=== PATIENT | female | born 1955 | race African-American/Black ===

== ENCOUNTER 2017-11-20 06:51 | Emergency (ER) | payer OTHER ==
[~2017-11-20 06:51] MED LIST: ALBU8.5H8 PO; DIPH25 PO; FURO20 PO; HYDR-309 PO; HYDR-3971 PO; KDUR20 PO; MOME13HF PO
== END 2017-11-20 07:51 | disposition left against medical advice (07) ==
LOC: EMS 06:51
DX: R06.02 Shortness of breath (principal); Z53.21 Procedure and treatment not carried out due to patient leaving prior to being seen by health care provider

== ENCOUNTER 2017-11-24 14:27 | Emergency (ER) | payer OTHER ==
[~2017-11-24] VITALS: Ht 165.1 cm; Wt 101.0 kg
[~2017-11-24 14:27] MED LIST changes: +MOME13HF IH; -MOME13HF PO
[2017-11-24] MEDS ORDERED: ALBUTEROL SULFATE 5 MG/ML 20 ML NEB SOLN [BULK] NEB ONE (15:00)
[2017-11-24] MEDS ORDERED: IPRATROPIUM BROMIDE 0.5 MG/2.5 ML NEB SOLUTION NEB ONE (15:00)
[2017-11-24] MEDS ORDERED: 0.9% SODIUM CHLORIDE 15 ML NEB SOLUTION NEB ONE (15:54)
[2017-11-24 17:13] VITALS: BP 187/85
[2017-11-28] MEDS ORDERED: NITR.4 SL (13:48)
[2017-11-28] MEDS ORDERED: CLON2 PO (13:48)
[2017-11-28] MEDS ORDERED: FURO20 PO (13:48)
[2017-11-28] MEDS ORDERED: VITAD50000 PO (13:48)
[2017-11-28] MEDS ORDERED: OMEP20 PO (13:48)
[2017-11-28] MEDS ORDERED: FAMO20 PO (13:48)
[2017-11-28] MEDS ORDERED: HYDR-305 PO (13:48)
[2017-11-28] MEDS ORDERED: RANI150T7 PO (13:48)
[2017-11-28] MEDS ORDERED: LOSA50TA37 PO (13:48)
[2017-11-28] MEDS ORDERED: ASPI81 PO (13:48)
[2017-11-28] MEDS ORDERED: METO25XL PO (13:48)
[2017-11-28] MEDS ORDERED: ROSU10 PO (13:48)
== END 2017-11-24 17:42 | disposition home or self-care (01) ==
LOC: EMS 14:27
DX: J44.9 Chronic obstructive pulmonary disease, unspecified (principal); E05.90 Thyrotoxicosis, unspecified without thyrotoxic crisis or storm; G89.29 Other chronic pain; F17.210 Nicotine dependence, cigarettes, uncomplicated
CPT/HCPCS: 94644; 99285; 99406

== ENCOUNTER 2017-11-25 11:14 | Emergency (ER) | payer OTHER ==
[~2017-11-25] VITALS: Ht 167.6 cm; Wt 100.0 kg
[~2017-11-25 11:14] MED LIST changes: -HYDR-3971 PO; -KDUR20 PO
[2017-11-25 11:46] VITALS: BP 142/84
[2017-11-25] MEDS ORDERED: 0.9% SODIUM CHLORIDE 5 ML NEB SOLUTION NEB ONE (11:53)
[2017-11-25] MEDS ORDERED: PredniSONE 20 MG TABLET PO ONE (12:00)
[2017-11-25] MEDS ORDERED: IPRATROPIUM BROMIDE 0.5 MG/2.5 ML NEB SOLUTION NEB ONE (12:00)
[2017-11-25] MEDS ORDERED: ALBUTEROL SULFATE 2.5 MG/0.5 ML NEB SOLUTION NEB ONE (12:00)
[2017-11-25 12:05] LABS: BASOPHILS % (AUTO) 0.9 % (0.0-2.0); EOSINOPHILS % (AUTO) 4.6 % (1.0-6.0); HEMATOCRIT 43.5 % (36-46); HEMOGLOBIN 14.8 g/dL (12.0-16.0); LYMPHOCYTES # (AUTO) 3.2 K/uL (1.0-4.8); LYMPHOCYTES % (AUTO) 31.5 % (22.0-44.0); MEAN CORPUSCULAR HEMOGLOBIN 29.3 pg (26.0-34.0); MEAN CORPUSCULAR VOLUME 86 fL (80-100); MONOCYTES # (AUTO) 0.3 K/uL (0.1-1.0); MONOCYTES % (AUTO) 3.4 % (2.0-9.0); NEUTROPHILS # (AUTO) 6.1 K/uL (1.8-7.7); NEUTROPHILS % (AUTO) 59.6 % (40.0-70.0); PLATELET COUNT (AUTO) 273 K/uL (150-450); RED BLOOD CELL COUNT(AUTO) 5.06 MIL/uL (4.00-5.20); RED CELL DISTRIBUTION WIDTH 13.6 % (11.5-14.5)
[2017-11-28] MEDS ORDERED: ROSU10 PO (13:48)
[2017-11-28] MEDS ORDERED: FAMO20 PO (13:48)
[2017-11-28] MEDS ORDERED: OMEP20 PO (13:48)
[2017-11-28] MEDS ORDERED: METO25XL PO (13:48)
[2017-11-28] MEDS ORDERED: FURO20 PO (13:48)
[2017-11-28] MEDS ORDERED: RANI150T7 PO (13:48)
[2017-11-28] MEDS ORDERED: CLON2 PO (13:48)
[2017-11-28] MEDS ORDERED: VITAD50000 PO (13:48)
[2017-11-28] MEDS ORDERED: ASPI81 PO (13:48)
[2017-11-28] MEDS ORDERED: LOSA50TA37 PO (13:48)
[2017-11-28] MEDS ORDERED: NITR.4 SL (13:48)
[2017-11-28] MEDS ORDERED: HYDR-305 PO (13:48)
== END 2017-11-25 13:35 | disposition home or self-care (01) ==
LOC: EMS 11:15
DX: J44.9 Chronic obstructive pulmonary disease, unspecified (principal); R11.2 Nausea with vomiting, unspecified; R19.7 Diarrhea, unspecified; I50.9 Heart failure, unspecified; E05.90 Thyrotoxicosis, unspecified without thyrotoxic crisis or storm; F32.9 Major depressive disorder, single episode, unspecified; G89.29 Other chronic pain; F17.210 Nicotine dependence, cigarettes, uncomplicated; Z79.899 Other long term (current) drug therapy; Z87.891 Personal history of nicotine dependence
CPT/HCPCS: 36415; 71045; 83880; 85025; 94640; 99285; J7512

== ENCOUNTER 2017-11-29 08:13 | Day surgery (SDC) | payer OTHER ==
[~2017-11-29] VITALS: Ht 165.1 cm; Wt 111.0 kg
[~2017-11-29 08:13] MED LIST changes: +0.9% SODIUM CHLORIDE 10 ML SYRINGE IVP PRN; +ASPI81 PO; +CLON2 PO; -DIPH25 PO; +FAMO20 PO; +HYDR-305 PO; -HYDR-309 PO; +LOSA50TA37 PO; +METO25XL PO; +METOPROLOL TARTRATE 50 MG TABLET PO PRN; +NITR.4 SL; +OMEP20 PO; +RANI150T7 PO; +ROSU10 PO; +VITAD50000 PO
[2017-11-29] MEDS ORDERED: EVOL140P IM (08:41)
[2017-11-29] MEDS ORDERED: PRED20 PO (08:41)
[2017-11-29 09:20] LABS: ANION GAP 6 mmol/L (8-16); CALCIUM, TOTAL 8.6 mg/dL (8.8-10.5); CARBON DIOXIDE 29 mmol/L (22-29); CHLORIDE 105 mmol/L (98-107); CREATININE 0.74 mg/dL (0.60-1.30); GLOMERULAR FILTR. RATE CALC > 60 mL/min (>60); GLUCOSE,RANDOM 87 mg/dL (70-110); POTASSIUM 3.3 mmol/L (3.5-5.1); SODIUM SERUM 140 mmol/L (136-145); UREA NITROGEN, BLOOD 17 mg/dL (7-18)
[2017-11-29] MEDS ORDERED: NITROGLYCERIN 400 MCG/SUBLINGUAL SPRAY 4.9 GM BOTTLE SL ONE ×2 (10:06→10:36)
[2017-11-29] MEDS ORDERED: METOPROLOL TARTRATE 5 MG/5 ML VIAL ONE (10:06)
[2017-11-29] MEDS ORDERED: IOVERSOL 350 MG/ML 150 ML VIAL ONE (10:26)
[2017-11-29] MEDS ORDERED: SODIUM CHLORIDE 0.9% 100 ML ONE (10:26)
== END 2017-11-29 11:40 | disposition home or self-care (01) ==
LOC: SURGERY 08:13 → EDSTATUS 10:00 → SURGERY 11:40
PROVIDERS: ATTEND Internal Medicine Cardiovascular Disease
DX: I25.118 Atherosclerotic heart disease of native coronary artery with other forms of angina pectoris (principal); I34.0 Nonrheumatic mitral (valve) insufficiency; J44.9 Chronic obstructive pulmonary disease, unspecified; E78.00 Pure hypercholesterolemia, unspecified; F32.9 Major depressive disorder, single episode, unspecified; G89.29 Other chronic pain; K21.9 Gastro-esophageal reflux disease without esophagitis; I11.9 Hypertensive heart disease without heart failure; Z79.52 Long term (current) use of systemic steroids; Z79.82 Long term (current) use of aspirin; Z79.891 Long term (current) use of opiate analgesic; Z87.891 Personal history of nicotine dependence; Z90.710 Acquired absence of both cervix and uterus; Z79.899 Other long term (current) drug therapy
CPT/HCPCS: 36415; 75574; 80048; 93005; J7050; Q9967; J3490

== ENCOUNTER 2018-02-04 11:11 | Emergency (ER) | payer OTHER ==
[~2018-02-04] VITALS: Ht 165.1 cm; Wt 104.5 kg
[~2018-02-04 11:11] MED LIST changes: -0.9% SODIUM CHLORIDE 10 ML SYRINGE IVP PRN; -CLON2 PO; +EVOL140P IM; -HYDR-305 PO; -LOSA50TA37 PO; -METOPROLOL TARTRATE 50 MG TABLET PO PRN; -NITR.4 SL; -OMEP20 PO; +PRED20 PO; -ROSU10 PO
[2018-02-04] MEDS ORDERED: ALBUTEROL SULFATE 2.5 MG/0.5 ML NEB SOLUTION NEB ONE (12:30)
[2018-02-04] MEDS ORDERED: IPRATROPIUM BROMIDE 0.5 MG/2.5 ML NEB SOLUTION NEB ONE (12:30)
[2018-02-04] MEDS ORDERED: 0.9% SODIUM CHLORIDE 5 ML NEB SOLUTION NEB ONE (12:34)
[2018-02-04 13:07] LABS: BASOPHILS % (AUTO) 0.8 % (0.0-2.0); EOSINOPHILS % (AUTO) 5.1 % (1.0-6.0); HEMATOCRIT 44.1 % (36-46); HEMOGLOBIN 14.7 g/dL (12.0-16.0); LYMPHOCYTES # (AUTO) 2.3 K/uL (1.0-4.8); LYMPHOCYTES % (AUTO) 20.9 % (22.0-44.0); MEAN CORPUSCULAR HEMOGLOBIN 28.9 pg (26.0-34.0); MEAN CORPUSCULAR HGB CONC 33.3 G/dL (31.0-37.0); MEAN CORPUSCULAR VOLUME 87 fL (80-100); MONOCYTES # (AUTO) 0.6 K/uL (0.1-1.0); NEUTROPHILS # (AUTO) 7.5 K/uL (1.8-7.7); NEUTROPHILS % (AUTO) 68.2 % (40.0-70.0); PLATELET COUNT (AUTO) 272 K/uL (150-450); RED BLOOD CELL COUNT(AUTO) 5.08 MIL/uL (4.00-5.20); RED CELL DISTRIBUTION WIDTH 13.6 % (11.5-14.5)
[2018-02-04 13:14] LABS: ANION GAP 7 mmol/L (8-16); CALCIUM, TOTAL 9.2 mg/dL (8.8-10.5); CARBON DIOXIDE 29 mmol/L (22-29); CHLORIDE 107 mmol/L (98-107); CREATININE 0.75 mg/dL (0.60-1.30); GLOMERULAR FILTR. RATE CALC > 60 mL/min (>60); GLUCOSE,RANDOM 99 mg/dL (70-110); POTASSIUM 3.9 mmol/L (3.5-5.1); SODIUM SERUM 143 mmol/L (136-145); UREA NITROGEN, BLOOD 7 mg/dL (7-18)
[2018-02-04 13:18] LABS: PROTHROMBIN TIME 10.2 SEC (9.4-11.6)
[2018-02-04 13:29] LABS: B-TYPE NATRIURETIC PEPTIDE 10 pg/mL (0-100)
[2018-02-04 13:38] LABS: ALANINE AMINOTRANSFERASE 22 U/L (12-78); ALBUMIN 3.6 g/dL (3.4-5.0); ALKALINE PHOSPHATASE 117 U/L (46-116); ASPARTATE AMINOTRANSFERASE 11 U/L (15-37); BILIRUBIN,TOTAL 0.3 mg/dL (0.1-1.0); CREATINE KINASE, TOTAL ONLY 83 U/L (26-192); TOTAL PROTEIN, SERUM 7.8 g/dL (6.4-8.2)
[2018-02-04] MEDS ORDERED: MethylPREDNISolone SOD SUCC 125 MG/2 ML VIAL IVP ONE (14:30)
[2018-02-04 14:44] VITALS: BP 119/63
== END 2018-02-04 15:31 | disposition home or self-care (01) ==
LOC: EMS 11:12
DX: J44.9 Chronic obstructive pulmonary disease, unspecified (principal); I50.9 Heart failure, unspecified; F32.9 Major depressive disorder, single episode, unspecified; E05.90 Thyrotoxicosis, unspecified without thyrotoxic crisis or storm; F17.210 Nicotine dependence, cigarettes, uncomplicated; Z90.710 Acquired absence of both cervix and uterus; Z79.82 Long term (current) use of aspirin; Z79.899 Other long term (current) drug therapy
CPT/HCPCS: 36415; 71045; 80053; 82550; 83880; 84484; 85025; 85610; 85730; 93005; 94640; 96374; 99285; J2930

== ENCOUNTER 2019-06-24 02:05 | Inpatient (IN) | payer OTHER ==
[~2019-06-24] VITALS: Ht 165.1 cm; Wt 151.3 kg
[~2019-06-24 02:05] MED LIST changes: +ASPI-728 PO; -ASPI81 PO; +CHOL500043 PO; -EVOL140P IM; +EVOL140P3 IM; -VITAD50000 PO
[2019-06-24] MEDS ORDERED: LORazepam 2 MG/ML VIAL ONE (02:09)
[2019-06-24] MEDS ORDERED: IPRATROPIUM BROMIDE 0.5 MG/2.5 ML NEB SOLUTION NEB ONE ×2 (02:14→02:15)
[2019-06-24] MEDS ORDERED: ALBUTEROL SULFATE 5 MG/ML 20 ML NEB SOLN [BULK] NEB ONE ×2 (02:14→02:15)
[2019-06-24] MEDS ORDERED: LORazepam 2 MG/ML VIAL IVP ONE (02:15)
[2019-06-24] MEDS ORDERED: ASPIRIN 325 MG TABLET PO ONE (02:15)
[2019-06-24] MEDS ORDERED: LABETALOL HCL 5 MG/ML 20 ML VIAL IVP ONE (02:15)
[2019-06-24] MEDS ORDERED: NITROGLYCERIN 0.4 MG SUBLINGUAL TABLET #25 SL ONE ×2 (02:30→02:45)
[2019-06-24] MEDS ORDERED: MethylPREDNISolone SOD SUCC 125 MG/2 ML VIAL IVP ONE (02:30)
[2019-06-24 02:31] LABS: BASOPHILS % (AUTO) 0.3 % (0.0-2.0); EOSINOPHILS % (AUTO) 0.4 % (1.0-6.0); HEMATOCRIT 47.5 % (36-46); HEMOGLOBIN 14.9 g/dL (12.0-16.0); LYMPHOCYTES # (AUTO) 6.7 K/uL (1.0-4.8); LYMPHOCYTES % (AUTO) 35.4 % (22.0-44.0); MEAN CORPUSCULAR HEMOGLOBIN 28.2 pg (26.0-34.0); MEAN CORPUSCULAR HGB CONC 31.4 G/dL (31.0-37.0); MEAN CORPUSCULAR VOLUME 90 fL (80-100); MONOCYTES % (AUTO) 5.2 % (2.0-9.0); NEUTROPHILS # (AUTO) 11.1 K/uL (1.8-7.7); NEUTROPHILS % (AUTO) 58.7 % (40.0-70.0); PLATELET COUNT (AUTO) 332 K/uL (150-450); RED BLOOD CELL COUNT(AUTO) 5.29 MIL/uL (4.00-5.20); RED CELL DISTRIBUTION WIDTH 14.6 % (11.5-14.5)
[2019-06-24 02:41] LABS: ANION GAP 12 mmol/L (8-16); CALCIUM, TOTAL 9.8 mg/dL (8.8-10.5); CARBON DIOXIDE 29 mmol/L (22-29); CHLORIDE 106 mmol/L (98-107); CREATININE 0.96 mg/dL (0.60-1.30); GLOMERULAR FILTR. RATE CALC > 60 mL/min (>60); GLUCOSE,RANDOM 176 mg/dL (70-110); POTASSIUM 3.4 mmol/L (3.5-5.1); SODIUM SERUM 147 mmol/L (136-145); UREA NITROGEN, BLOOD 18 mg/dL (7-18)
[2019-06-24 02:45] LABS: D-DIMER 0.28 mg/L FEU (0.00-0.50); INR 0.9 (0.9-1.1); PROTHROMBIN TIME 9.5 SEC (9.4-11.6)
[2019-06-24 02:47] LABS: ALANINE AMINOTRANSFERASE 33 U/L (12-78); ALBUMIN 3.6 g/dL (3.4-5.0); ALKALINE PHOSPHATASE 116 U/L (46-116); ASPARTATE AMINOTRANSFERASE 13 U/L (15-37); BILIRUBIN,TOTAL 0.2 mg/dL (0.1-1.0); TOTAL PROTEIN, SERUM 7.8 g/dL (6.4-8.2)
[2019-06-24 02:52] LABS: B-TYPE NATRIURETIC PEPTIDE 37 pg/mL (0-100)
[2019-06-24] MEDS ORDERED: MAGNESIUM SULFATE 2 GM/WATER 50 ML IV ONE (03:00)
[2019-06-24] MEDS ORDERED: CefTRIAXone 1 GM/DEXTROSE 50 ML IV ONE (03:30)
[2019-06-24 03:47] LABS: LACTIC ACID 2.4 mmol/L (0.4-2.0)
[2019-06-24] MEDS ORDERED: SODIUM CHLORIDE 0.9% 1,000 ML IV ONE (04:00)
[2019-06-24] MEDS ORDERED: AZITHROMYCIN 250 MG TABLET PO ONE (04:15)
[2019-06-24] MEDS ORDERED: ALBUTEROL SULFATE 2.5 MG/0.5 ML NEB SOLUTION NEB PRN ×3 (05:30→15:15)
[2019-06-24] MEDS ORDERED: IPRATROPIUM BROMIDE 0.5 MG/2.5 ML NEB SOLUTION NEB PRN (05:30)
[2019-06-24] MEDS ORDERED: ACETAMINOPHEN 325 MG TABLET PO PRN (05:30)
[2019-06-24 05:51] VITALS: BP 107/81
[2019-06-24] MEDS ORDERED: OxyCODONE HCL/ACETAMINOPHEN 5-325 MG TABLET PO PRN ×3 (06:30→15:00)
[2019-06-24] MEDS: ALBUTEROL SULFATE 2.5 MG/0.5 ML NEB SOLUTION NEB SCH ×3 (07:04→19:06)
[2019-06-24] MEDS: IPRATROPIUM BROMIDE 0.5 MG/2.5 ML NEB SOLUTION NEB SCH ×3 (07:04→19:06)
[2019-06-24] MEDS ORDERED: INFLUENZA VIRUS VACCINE QVS 2019-20 (3YR+)/PF 60 MCG/0.5 ML SYRINGE IM ONE (07:15)
[2019-06-24] MEDS ORDERED: PNEUMOCOCCAL VACCINE POLYVALENT 0.5 ML VIAL [PPSV23] IM ONE (07:15)
[2019-06-24 07:41] VITALS: BP 124/90
[2019-06-24] MEDS ORDERED: MethylPREDNISolone SOD SUCC 125 MG/2 ML VIAL IVP SCH (08:00)
[2019-06-24] MEDS ORDERED: 0.9% SODIUM CHLORIDE 5 ML NEB SOLUTION NEB ONE (11:00)
[2019-06-24 12:08] VITALS: BP 105/75
[2019-06-24] MEDS ORDERED: ONDANSETRON HCL 4 MG/2 ML VIAL IVP PRN (15:00)
[2019-06-24] MEDS ORDERED: 0.9% SODIUM CHLORIDE 10 ML SYRINGE IVP PRN (15:00)
[2019-06-24] MEDS ORDERED: POTASSIUM CHLORIDE 20 MEQ ER TABLET PO PRN ×2 (15:15)
[2019-06-24] MEDS ORDERED: POTASSIUM CHL 10 MEQ/WATER 50 ML IV PRN ×2 (15:15)
[2019-06-24 16:09] VITALS: BP 127/71
[2019-06-24] MEDS ORDERED: ZOLPIDEM TARTRATE 10 MG TABLET PO PRN (16:15)
[2019-06-24] MEDS ORDERED: SODIUM CHLORIDE 0.9% 250 ML IV ONE (16:19)
[2019-06-24] MEDS: MethylPREDNISolone SOD SUCC 125 MG/2 ML VIAL IVP SCH (16:28)
[2019-06-24] MEDS: FUROSEMIDE 20 MG TABLET PO SCH (16:29)
[2019-06-24] MEDS: AZITHROMYCIN 500 MG/NS 250 ML IV SCH (16:29)
[2019-06-24] MEDS: ASPIRIN 81 MG CHEWABLE TABLET PO SCH (16:29)
[2019-06-24] MEDS: METOPROLOL SUCCINATE 25 MG ER TABLET PO SCH (16:29)
[2019-06-24] MEDS: LORazepam 1 MG TABLET PO PRN (18:24)
[2019-06-24] MEDS: FAMOTIDINE 20 MG TABLET PO SCH (21:10)
[2019-06-24] MEDS: DOCUSATE SODIUM 100 MG CAPSULE PO SCH (21:17)
[2019-06-24 21:47] VITALS: BP 130/73
[2019-06-24] MEDS: CefTRIAXone 1 GM/DEXTROSE 50 ML IV SCH (22:56)
[2019-06-25] MEDS: MethylPREDNISolone SOD SUCC 125 MG/2 ML VIAL IVP SCH ×4 (00:13→23:52)
[2019-06-25 01:21] VITALS: BP 128/82
[2019-06-25] MEDS: IPRATROPIUM BROMIDE 0.5 MG/2.5 ML NEB SOLUTION NEB SCH ×4 (01:51→20:13)
[2019-06-25] MEDS: ALBUTEROL SULFATE 2.5 MG/0.5 ML NEB SOLUTION NEB SCH ×4 (01:51→20:13)
[2019-06-25 05:37] VITALS: BP 108/70
[2019-06-25 06:39] LABS: BASOPHILS % (AUTO) 0.5 % (0.0-2.0); EOSINOPHILS % (AUTO) 0 % (1.0-6.0); HEMATOCRIT 42.2 % (36-46); HEMOGLOBIN 13.4 g/dL (12.0-16.0); LYMPHOCYTES # (AUTO) 1.6 K/uL (1.0-4.8); LYMPHOCYTES % (AUTO) 11.3 % (22.0-44.0); MEAN CORPUSCULAR HEMOGLOBIN 28.1 pg (26.0-34.0); MEAN CORPUSCULAR HGB CONC 31.8 G/dL (31.0-37.0); MEAN CORPUSCULAR VOLUME 88 fL (80-100); MONOCYTES # (AUTO) 0.5 K/uL (0.1-1.0); MONOCYTES % (AUTO) 3.4 % (2.0-9.0); NEUTROPHILS # (AUTO) 11.9 K/uL (1.8-7.7); NEUTROPHILS % (AUTO) 84.8 % (40.0-70.0); PLATELET COUNT (AUTO) 268 K/uL (150-450); RED BLOOD CELL COUNT(AUTO) 4.77 MIL/uL (4.00-5.20); RED CELL DISTRIBUTION WIDTH 14.4 % (11.5-14.5)
[2019-06-25 06:58] LABS: ANION GAP 6 mmol/L (8-16); CARBON DIOXIDE 29 mmol/L (22-29); CHLORIDE 107 mmol/L (98-107); GLOMERULAR FILTR. RATE CALC > 60 mL/min (>60); GLUCOSE,RANDOM 102 mg/dL (70-110); POTASSIUM 4.6 mmol/L (3.5-5.1); SODIUM SERUM 142 mmol/L (136-145); UREA NITROGEN, BLOOD 22 mg/dL (7-18)
[2019-06-25 07:33] VITALS: BP 131/77
[2019-06-25 07:55] LABS: APPEARANCE,URINE HAZY (CLEAR); BILIRUBIN,URINE NEGATIVE (NEGATIVE); GLUCOSE, URINE (UA) NEGATIVE (NEGATIVE); KETONES,URINE NEGATIVE (NEGATIVE); LEUKOCYTE ESTERASE ,URINE NEGATIVE (NEGATIVE); NITRATE,URINE NEGATIVE (NEGATIVE); OCCULT BLOOD,URINE NEGATIVE (NEGATIVE); PH,URINE 5.5 (5.0-8.0); PROTEIN,URINE NEGATIVE (NEGATIVE); UROBILINOGEN,URINE 0.2 mg/dL (<=1.0)
[2019-06-25] MEDS: ASPIRIN 81 MG CHEWABLE TABLET PO SCH (09:12)
[2019-06-25] MEDS: DOCUSATE SODIUM 100 MG CAPSULE PO SCH ×2 (09:12→21:22)
[2019-06-25] MEDS: METOPROLOL SUCCINATE 25 MG ER TABLET PO SCH (09:12)
[2019-06-25] MEDS: FUROSEMIDE 20 MG TABLET PO SCH (09:12)
[2019-06-25] MEDS: NICOTINE 21 MG/24 HOUR PATCH TD SCH (09:13)
[2019-06-25] MEDS: LORazepam 1 MG TABLET PO PRN ×2 (11:43→21:27)
[2019-06-25 11:49] VITALS: BP 133/88
[2019-06-25 15:37] VITALS: BP 127/76
[2019-06-25] MEDS: AZITHROMYCIN 500 MG/NS 250 ML IV SCH (15:40)
[2019-06-25 20:44] VITALS: BP 147/80
[2019-06-25] MEDS: FAMOTIDINE 20 MG TABLET PO SCH (21:22)
[2019-06-25] MEDS: CefTRIAXone 1 GM/DEXTROSE 50 ML IV SCH (21:22)
[2019-06-26] MEDS: IPRATROPIUM BROMIDE 0.5 MG/2.5 ML NEB SOLUTION NEB SCH ×4 (02:00→19:56)
[2019-06-26] MEDS: ALBUTEROL SULFATE 2.5 MG/0.5 ML NEB SOLUTION NEB SCH ×4 (02:00→19:56)
[2019-06-26 04:54] VITALS: BP 167/97
[2019-06-26 06:53] LABS: BASOPHILS % (AUTO) 0.4 % (0.0-2.0); EOSINOPHILS % (AUTO) 0 % (1.0-6.0); HEMOGLOBIN 14.2 g/dL (12.0-16.0); LYMPHOCYTES # (AUTO) 1.5 K/uL (1.0-4.8); LYMPHOCYTES % (AUTO) 13.1 % (22.0-44.0); MEAN CORPUSCULAR HEMOGLOBIN 28.5 pg (26.0-34.0); MEAN CORPUSCULAR HGB CONC 32.4 G/dL (31.0-37.0); MEAN CORPUSCULAR VOLUME 88 fL (80-100); MONOCYTES # (AUTO) 0.4 K/uL (0.1-1.0); MONOCYTES % (AUTO) 3.2 % (2.0-9.0); NEUTROPHILS # (AUTO) 9.8 K/uL (1.8-7.7); NEUTROPHILS % (AUTO) 83.3 % (40.0-70.0); PLATELET COUNT (AUTO) 295 K/uL (150-450); RED BLOOD CELL COUNT(AUTO) 4.99 MIL/uL (4.00-5.20); RED CELL DISTRIBUTION WIDTH 14.1 % (11.5-14.5)
[2019-06-26 07:02] LABS: ANION GAP 5 mmol/L (8-16); CARBON DIOXIDE 31 mmol/L (22-29); CHLORIDE 107 mmol/L (98-107); CREATININE 0.81 mg/dL (0.60-1.30); GLOMERULAR FILTR. RATE CALC > 60 mL/min (>60); GLUCOSE,RANDOM 108 mg/dL (70-110); POTASSIUM 4.1 mmol/L (3.5-5.1); SODIUM SERUM 143 mmol/L (136-145); UREA NITROGEN, BLOOD 25 mg/dL (7-18)
[2019-06-26 07:43] VITALS: BP 143/108
[2019-06-26] MEDS: MethylPREDNISolone SOD SUCC 125 MG/2 ML VIAL IVP SCH ×2 (08:09→15:11)
[2019-06-26] MEDS: ASPIRIN 81 MG CHEWABLE TABLET PO SCH (08:10)
[2019-06-26] MEDS: DOCUSATE SODIUM 100 MG CAPSULE PO SCH (08:10)
[2019-06-26] MEDS: FUROSEMIDE 20 MG TABLET PO SCH (08:10)
[2019-06-26] MEDS: METOPROLOL SUCCINATE 25 MG ER TABLET PO SCH (08:10)
[2019-06-26] MEDS: NICOTINE 21 MG/24 HOUR PATCH TD SCH (08:13)
[2019-06-26] MEDS: LORazepam 1 MG TABLET PO PRN (10:48)
[2019-06-26 11:53] VITALS: BP 151/106
[2019-06-26] MEDS ORDERED: AUD NEB (12:30)
[2019-06-26] MEDS ORDERED: LORA-1000 PO (12:35)
[2019-06-26] MEDS ORDERED: CEPH-582 PO (12:59)
[2019-06-26] MEDS: AZITHROMYCIN 500 MG/NS 250 ML IV SCH (15:11)
[2019-06-26 20:13] VITALS: BP 138/87
== END 2019-06-26 21:00 | disposition home health service (06) | DRG 871 ==
LOC: EMS 02:06 → 5N 05:29
PROVIDERS: ADMIT Internal Medicine; ATTEND Internal Medicine
DX: A41.9 Sepsis, unspecified organism (principal); J18.9 Pneumonia, unspecified organism; J45.901 Unspecified asthma with (acute) exacerbation; E87.6 Hypokalemia; F17.210 Nicotine dependence, cigarettes, uncomplicated; I50.9 Heart failure, unspecified; G89.29 Other chronic pain; M54.9 Dorsalgia, unspecified; F32.9 Major depressive disorder, single episode, unspecified; F17.200 Nicotine dependence, unspecified, uncomplicated; T38.0X5A Adverse effect of glucocorticoids and synthetic analogues, initial encounter; F19.90 Other psychoactive substance use, unspecified, uncomplicated; I11.0 Hypertensive heart disease with heart failure; Z86.19 Personal history of other infectious and parasitic diseases; Z90.710 Acquired absence of both cervix and uterus; Z79.899 Other long term (current) drug therapy
CPT/HCPCS: 83605; 84132; 84145; 85379; 87040; 93005; 94640; 94644; 94660; 96374; 96375; J0456; J0696; J2060; J2930; J3475; J3490; J7050

== ENCOUNTER 2020-11-14 14:18 | Emergency (ER) | payer OTHER ==
[~2020-11-14] VITALS: Ht 167.6 cm; Wt 104.5 kg
[~2020-11-14 14:18] MED LIST changes: +ALPR0.5T8 PO; +AMLO2.5T29 PO; +ASPI-1450 PO; -ASPI-728 PO; +BUSP10TA23 PO; +CEFU250T87 PO; -EVOL140P3 IM; +EVOL140P3 SQ; -FAMO20 PO; +FLUT16H NASAL; +GABA-1181 PO; +IPRA3AMP24 NEB; +MONT-35 PO; +OMEP20CA13 PO; +POTA8CAP20 PO; +PROM118S5 PO; -RANI150T7 PO; +SUCR1ORA15 PO; +TRAZ-252 PO
[2020-11-14] MEDS ORDERED: IPRATROPIUM BROMIDE 0.5 MG/2.5 ML NEB SOLUTION NEB ONE (15:30)
[2020-11-14] MEDS ORDERED: PredniSONE 20 MG TABLET PO ONE ×2 (15:30→16:15)
[2020-11-14] MEDS ORDERED: ALBUTEROL SULFATE 5 MG/ML 20 ML NEB SOLN [BULK] NEB ONE (15:30)
[2020-11-14 15:53] LABS: BASOPHILS % (AUTO) 1.1 % (0.0-2.0); EOSINOPHILS % (AUTO) 1.4 % (1.0-6.0); HEMATOCRIT 47.5 % (36-46); HEMOGLOBIN 15.1 g/dL (12.0-16.0); LYMPHOCYTES # (AUTO) 3.4 K/uL (1.0-4.8); LYMPHOCYTES % (AUTO) 21.4 % (22.0-44.0); MEAN CORPUSCULAR HEMOGLOBIN 26.7 pg (26.0-34.0); MEAN CORPUSCULAR HGB CONC 31.7 G/dL (31.0-37.0); MEAN CORPUSCULAR VOLUME 84 fL (80-100); MONOCYTES # (AUTO) 1.1 K/uL (0.1-1.0); NEUTROPHILS # (AUTO) 10.9 K/uL (1.8-7.7); NEUTROPHILS % (AUTO) 69.1 % (40.0-70.0); PLATELET COUNT (AUTO) 335 K/uL (150-450); RED BLOOD CELL COUNT(AUTO) 5.65 MIL/uL (4.00-5.20); RED CELL DISTRIBUTION WIDTH 15.1 % (11.5-14.5)
[2020-11-14 16:02] LABS: CALCIUM, TOTAL 10.8 mg/dL (8.8-10.5); CREATININE 1.27 mg/dL (0.60-1.30); POTASSIUM 3.4 mmol/L (3.5-5.1)
[2020-11-14 16:07] LABS: ALBUMIN 3.8 g/dL (3.4-5.0); BILIRUBIN,TOTAL 0.4 mg/dL (0.1-1.0); TOTAL PROTEIN, SERUM 8.6 g/dL (6.4-8.2)
[2020-11-14 16:39] VITALS: BP 115/72
== END 2020-11-14 17:28 | disposition home or self-care (01) ==
LOC: EMS 14:32
DX: J44.9 Chronic obstructive pulmonary disease, unspecified (principal); I50.9 Heart failure, unspecified; F17.210 Nicotine dependence, cigarettes, uncomplicated; F32.9 Major depressive disorder, single episode, unspecified; D72.818 Other decreased white blood cell count; Z79.82 Long term (current) use of aspirin; Z79.899 Other long term (current) drug therapy
CPT/HCPCS: 36415; 71045; 80053; 83880; 84484; 85025; 93005; 94644; 99285; J7512; J7611

== ENCOUNTER 2022-12-29 08:10 | Day surgery (SDC) | payer OTHER ==
[2022-12-29] VITALS (9 sets, daily range): BP systolic 117–162; BP diastolic 55–84; PULSE 51–62
[~2022-12-29] VITALS: Ht 165.1 cm; Wt 118.2 kg
[~2022-12-29 08:10] MED LIST changes: -ALPR0.5T8 PO; -BUSP10TA23 PO; -CEFU250T87 PO; -FLUT16H NASAL; +FLUT16SP NASAL; +ISOS20TA85 PO; +LINA290C PO; -MOME13HF IH; +NITR0.4T50 SL; +PRED-554 PO; -PRED20 PO; -PROM118S5 PO; +SODIUM CHLORIDE 0.9% 1,000 ML IV ONE; +SODIUM CHLORIDE 0.9% 1,000 ML ONE; -SUCR1ORA15 PO
[2022-12-29 08:52] LABS: BASOPHILS % (AUTO) 0.3 % (0.0-2.0); EOSINOPHILS % (AUTO) 1.2 % (1.0-6.0); HEMATOCRIT 44.7 % (36-46); HEMOGLOBIN 14.2 g/dL (12.0-16.0); LYMPHOCYTES # (AUTO) 3.3 K/uL (1.0-4.8); LYMPHOCYTES % (AUTO) 27.3 % (22.0-44.0); MEAN CORPUSCULAR HGB CONC 31.8 G/dL (31.0-37.0); MEAN CORPUSCULAR VOLUME 94 fL (80-100); MONOCYTES # (AUTO) 0.6 K/uL (0.1-1.0); MONOCYTES % (AUTO) 5.2 % (2.0-9.0); PLATELET COUNT (AUTO) 236 K/uL (150-450); RED BLOOD CELL COUNT(AUTO) 4.74 MIL/uL (4.00-5.20); RED CELL DISTRIBUTION WIDTH 13.1 % (11.5-14.5); WHITE BLOOD COUNT (AUTO) 12.1 K/uL (4.5-11.0)
[2022-12-29 09:00] LABS: ANION GAP 17 mmol/L (8-16); CALCIUM, TOTAL 9.5 mg/dL (8.8-10.5); CARBON DIOXIDE 29 mmol/L (22-29); CHLORIDE 102 mmol/L (98-107); GLOMERULAR FILTR. RATE CALC > 60 mL/min (>60); GLUCOSE,RANDOM 82 mg/dL (70-110); POTASSIUM 3.5 mmol/L (3.5-5.1); SODIUM SERUM 148 mmol/L (136-145); UREA NITROGEN, BLOOD 19 mg/dL (7-18)
[2022-12-29 09:04] LABS: INR 1.1 (0.9-1.1); PROTHROMBIN TIME 11.4 SEC (9.4-11.6)
[2022-12-29 09:06] LABS: ALANINE AMINOTRANSFERASE 16 U/L (12-78); ALBUMIN 3.3 g/dL (3.4-5.0); ALKALINE PHOSPHATASE 77 U/L (46-116); ASPARTATE AMINOTRANSFERASE 16 U/L (15-37); BILIRUBIN,TOTAL 0.4 mg/dL (0.1-1.0); TOTAL PROTEIN, SERUM 6.9 g/dL (6.4-8.2)
[2022-12-29] MEDS ORDERED: FentaNYL CITRATE PF 100 MCG/2 ML VIAL ONE (11:40)
[2022-12-29] MEDS ORDERED: MIDAZOLAM HCL 2 MG/2 ML VIAL ONE (11:41)
[2022-12-29] MEDS ORDERED: ADENOSINE 3 MG/ML 2 ML VIAL IVP ONE (11:54)
[2022-12-29] MEDS ORDERED: LIDOCAINE 1% 30 ML/SOD BICARB 8.4% 4 ML SQ ONE (12:00)
[2022-12-29] MEDS ORDERED: IOHEXOL 300 MG/ML 100 ML VIAL ICOR ONE ×2 (12:00→12:15)
[2022-12-29] MEDS ORDERED: VERAPAMIL HCL 2.5 MG/ML 2 ML VIAL IARTER ONE (12:00)
[2022-12-29] MEDS ORDERED: HEPARIN SODIUM 1000 UNITS/NS 1,000 ML IARTER ONE (12:00)
[2022-12-29] MEDS ORDERED: MIDAZOLAM HCL 2 MG/2 ML VIAL IVP ONE (12:00)
[2022-12-29] MEDS ORDERED: NITROGLYCERIN/D5W 50 MG/250 ML IV BOTTLE IARTER ONE (12:00)
[2022-12-29] MEDS ORDERED: FentaNYL CITRATE PF 100 MCG/2 ML VIAL IVP ONE (12:00)
[2022-12-29] MEDS ORDERED: HEPARIN SODIUM,PORCINE 1,000 UNITS/ML 10 ML VIAL IVP ONE ×2 (12:15)
[2022-12-29] MEDS ORDERED: ADENOSINE IV ONE (12:15)
[2022-12-29] MEDS ORDERED: CONTAINER EMPTY IV ONE (12:15)
[2022-12-29] MEDS ORDERED: ALBUTEROL SULFATE 2.5 MG/0.5 ML NEB SOLUTION NEB ONE ×2 (12:46→13:00)
== END 2022-12-29 16:50 | disposition home or self-care (01) ==
LOC: CATHLAB 08:10
PROVIDERS: ATTEND Internal Medicine Cardiovascular Disease
DX: R07.9 Chest pain, unspecified (principal); E11.9 Type 2 diabetes mellitus without complications; I11.0 Hypertensive heart disease with heart failure; I50.9 Heart failure, unspecified; I25.10 Atherosclerotic heart disease of native coronary artery without angina pectoris; F32.A Depression, unspecified; F41.9 Anxiety disorder, unspecified; J44.9 Chronic obstructive pulmonary disease, unspecified; E03.9 Hypothyroidism, unspecified; R94.39 Abnormal result of other cardiovascular function study
CPT/HCPCS: 80053; 85025; 85610; 85730; 36415; 99152; 99153; 93005; 93458; 92978; C1757; C1887; J3010; J2250; J7030; Q9967; C1753; 75960; J0153; J7613

== ENCOUNTER 2023-06-15 14:56 | Inpatient (IN) | payer OTHER ==
[~2023-06-15] VITALS: Ht 175.3 cm; Wt 125.8 kg
[~2023-06-15 14:56] MED LIST changes: -SODIUM CHLORIDE 0.9% 1,000 ML IV ONE; -SODIUM CHLORIDE 0.9% 1,000 ML ONE
[2023-06-15 15:58] LABS: BASOPHILS % (AUTO) 0.7 % (0.0-2.0); EOSINOPHILS % (AUTO) 0.5 % (1.0-6.0); HEMATOCRIT 45.5 % (36-46); HEMOGLOBIN 14.7 g/dL (12.0-16.0); LYMPHOCYTES # (AUTO) 2.3 K/uL (1.0-4.8); MEAN CORPUSCULAR HEMOGLOBIN 30.4 pg (26.0-34.0); MEAN CORPUSCULAR HGB CONC 32.2 G/dL (31.0-37.0); MEAN CORPUSCULAR VOLUME 94 fL (80-100); MONOCYTES # (AUTO) 0.8 K/uL (0.1-1.0); MONOCYTES % (AUTO) 5.3 % (2.0-9.0); NEUTROPHILS # (AUTO) 11.8 K/uL (1.8-7.7); NEUTROPHILS % (AUTO) 78.5 % (40.0-70.0); PLATELET COUNT (AUTO) 261 K/uL (150-450); RED BLOOD CELL COUNT(AUTO) 4.83 MIL/uL (4.00-5.20); RED CELL DISTRIBUTION WIDTH 13.8 % (11.5-14.5)
[2023-06-15 16:06] LABS: ANION GAP 8 mmol/L (8-16); CALCIUM, TOTAL 9.9 mg/dL (8.8-10.5); CARBON DIOXIDE 31 mmol/L (22-29); CHLORIDE 103 mmol/L (98-107); CREATININE 1.06 mg/dL (0.60-1.30); GLOMERULAR FILTR. RATE CALC > 60 mL/min (>60); GLUCOSE,RANDOM 97 mg/dL (70-110); POTASSIUM 4.2 mmol/L (3.5-5.1); SODIUM SERUM 142 mmol/L (136-145); UREA NITROGEN, BLOOD 20 mg/dL (7-18)
[2023-06-15 16:10] LABS: B-TYPE NATRIURETIC PEPTIDE 28 pg/mL (0-100)
[2023-06-15 16:12] LABS: ALANINE AMINOTRANSFERASE 21 U/L (12-78); ALBUMIN 3.4 g/dL (3.4-5.0); ALKALINE PHOSPHATASE 78 U/L (46-116); ASPARTATE AMINOTRANSFERASE 13 U/L (15-37); BILIRUBIN,TOTAL 0.5 mg/dL (0.1-1.0); CREATINE KINASE, TOTAL ONLY 62 U/L (26-192)
[2023-06-15 16:14] LABS: TROPONIN I-HIGH SENSITIVITY 6 ng/L (<51)
[2023-06-15 16:27] LABS: INR 1.1 (0.9-1.1); PROTHROMBIN TIME 11.3 SEC (9.4-11.6)
[2023-06-15] MEDS: HYDROCODONE/ACETAMINOPHEN 5-325 MG TABLET PO ONE (16:52)
[2023-06-15] MEDS ORDERED: MAGNESIUM HYDROXIDE SUSPENSION 30 ML UDCUP PO PRN (17:45)
[2023-06-15] MEDS ORDERED: ALBUTEROL SULFATE 2.5 MG/0.5 ML NEB SOLUTION NEB PRN (17:45)
[2023-06-15] MEDS ORDERED: ACETAMINOPHEN 325 MG TABLET PO PRN (17:45)
[2023-06-15] MEDS: ATORVASTATIN CALCIUM 20 MG TABLET PO SCH (18:25)
[2023-06-15 18:28] LABS: TROPONIN I-HIGH SENSITIVITY 5 ng/L (<51)
[2023-06-15] MEDS ORDERED: 0.9% SODIUM CHLORIDE 5 ML NEB SOLUTION NEB ONE (19:53)
[2023-06-15] MEDS: ALBUTEROL SULFATE 2.5 MG/0.5 ML NEB SOLUTION NEB PRN (19:58)
[2023-06-15 20:00] VITALS: PULSE 57; RESP 19; O2SAT 97
[2023-06-15 20:15] VITALS: PULSE 59; RESP 19; O2SAT 99
[2023-06-15] MEDS: DOCUSATE SODIUM 100 MG CAPSULE PO SCH (21:00)
[2023-06-15 21:17] VITALS: BP 115/56; PULSE 67; RESP 20; TEMP 98.2
[2023-06-15 22:33] LABS: TROPONIN I-HIGH SENSITIVITY 5 ng/L (<51)
[2023-06-15] MEDS: HEPARIN SODIUM,PORCINE 5,000 UNITS/ML VIAL SQ SCH (23:20)
[2023-06-16] VITALS (15 sets, daily range): BP systolic 112–127; BP diastolic 58–71; PULSE 61–88; RESP 16–20; TEMP 97.8–98.6; O2SAT 90–100
[2023-06-16] MEDS: OxyCODONE HCL/ACETAMINOPHEN 5-325 MG TABLET PO PRN (01:08)
[2023-06-16] MEDS: ZOLPIDEM TARTRATE 5 MG TABLET PO PRN (01:08)
[2023-06-16 08:28] LABS: BASOPHILS % (AUTO) 0.5 % (0.0-2.0); EOSINOPHILS % (AUTO) 1.2 % (1.0-6.0); HEMATOCRIT 42.9 % (36-46); HEMOGLOBIN 13.7 g/dL (12.0-16.0); LYMPHOCYTES # (AUTO) 3.2 K/uL (1.0-4.8); LYMPHOCYTES % (AUTO) 27.5 % (22.0-44.0); MEAN CORPUSCULAR HEMOGLOBIN 30.1 pg (26.0-34.0); MEAN CORPUSCULAR VOLUME 94 fL (80-100); MONOCYTES # (AUTO) 0.8 K/uL (0.1-1.0); MONOCYTES % (AUTO) 7.2 % (2.0-9.0); NEUTROPHILS # (AUTO) 7.4 K/uL (1.8-7.7); NEUTROPHILS % (AUTO) 63.6 % (40.0-70.0); PLATELET COUNT (AUTO) 243 K/uL (150-450); RED BLOOD CELL COUNT(AUTO) 4.55 MIL/uL (4.00-5.20); RED CELL DISTRIBUTION WIDTH 13.8 % (11.5-14.5); WHITE BLOOD COUNT (AUTO) 11.7 K/uL (4.5-11.0)
[2023-06-16] MEDS: ASPIRIN 81 MG CHEWABLE TABLET PO SCH (09:16)
[2023-06-16] MEDS: FAMOTIDINE 20 MG TABLET PO SCH (09:18)
[2023-06-16] MEDS ORDERED: 0.9% SODIUM CHLORIDE 5 ML NEB SOLUTION NEB ONE (09:36)
[2023-06-16] MEDS ORDERED: ISOS30TA92 PO (12:25)
[2023-06-16] MEDS: PredniSONE 10 MG TABLET PO SCH (13:50)
[2023-06-16] MEDS ORDERED: NITROGLYCERIN 0.4 MG SUBLINGUAL TABLET #25 SL PRN (14:45)
[2023-06-16] MEDS: ALBUTEROL SULFATE 2.5 MG/0.5 ML NEB SOLUTION NEB PRN (14:56)
[2023-06-16] MEDS: IPRATROPIUM BROMIDE 0.5 MG/2.5 ML NEB SOLUTION NEB PRN (14:56)
[2023-06-16 17:59] LABS: APPEARANCE,URINE CLEAR (CLEAR); BILIRUBIN,URINE NEGATIVE (NEGATIVE); COLOR,URINE YELLOW (YELLOW); GLUCOSE, URINE (UA) NEGATIVE (NEGATIVE); KETONES,URINE NEGATIVE (NEGATIVE); LEUKOCYTE ESTERASE ,URINE LARGE (NEGATIVE); NITRATE,URINE NEGATIVE (NEGATIVE); OCCULT BLOOD,URINE NEGATIVE (NEGATIVE); PH,URINE 5.5 (5.0-8.0); PROTEIN,URINE TRACE mg/dL (NEGATIVE); SPECIFIC GRAVITIY, URINE 1.027 (1.003-1.030); UROBILINOGEN,URINE <=1.0 mg/dL (<=1.0)
[2023-06-16 18:22] LABS: BACTERIA,URINE Rare /HPF (None Seen)
[2023-06-16 18:23] LABS: CALCIUM OXALATE CRYSTALS,UR Few /LPF (None Seen); SQUAMOUS EPITHELIAL CELL,UR Few /LPF (None Seen)
[2023-06-16] MEDS: IPRATROPIUM BROMIDE 0.5 MG/2.5 ML NEB SOLUTION NEB SCH (19:41)
[2023-06-16] MEDS: ALBUTEROL SULFATE 2.5 MG/0.5 ML NEB SOLUTION NEB SCH (19:41)
[2023-06-17] VITALS (8 sets, daily range): BP systolic 128–154; BP diastolic 70–89; PULSE 66–90; RESP 18–20; TEMP 97.8–98.2; O2SAT 90–92
[2023-06-17] MEDS: METOPROLOL SUCCINATE 25 MG ER TABLET PO SCH (07:52)
[2023-06-17] MEDS ORDERED: ASPI-1450 PO (13:43)
[2023-06-17] MEDS ORDERED: CEPH-558 PO (13:43)
[2023-06-17] MEDS ORDERED: ATOR20TA65 PO (13:43)
[2023-06-17] MEDS ORDERED: METO25XL PO (13:43)
[2023-06-17] MEDS ORDERED: PRED-729 PO (13:43)
[2023-06-17] MEDS ORDERED: NITR0.4T52 SL (13:43)
== END 2023-06-17 15:30 | disposition home or self-care (01) | DRG 74 ==
LOC: EMS 14:58 → 5S 18:16
PROVIDERS: ADMIT Internal Medicine; ATTEND Internal Medicine
DX: G90.8 Other disorders of autonomic nervous system (principal); J44.1 Chronic obstructive pulmonary disease with (acute) exacerbation; I25.10 Atherosclerotic heart disease of native coronary artery without angina pectoris; I71.20 Thoracic aortic aneurysm, without rupture, unspecified; D72.829 Elevated white blood cell count, unspecified; F17.210 Nicotine dependence, cigarettes, uncomplicated; Z20.822 Contact with and (suspected) exposure to COVID-19; I11.0 Hypertensive heart disease with heart failure; I50.9 Heart failure, unspecified; G89.29 Other chronic pain; E05.90 Thyrotoxicosis, unspecified without thyrotoxic crisis or storm; Z90.710 Acquired absence of both cervix and uterus
CPT/HCPCS: 71045; 80053; 81001; 82550; 83880; 84484; 85025; 85610; 85730; 87086; 87186; 93005; 93306; 94640; 99285; J1644; 36415-L1; 36415-TC; J7512; J7613; Z7610

== ENCOUNTER 2023-10-26 21:48 | Emergency (ER) | payer OTHER ==
[~2023-10-26] VITALS: Ht 165.1 cm; Wt 127.3 kg
[~2023-10-26 21:48] MED LIST changes: +ALBU18HF12 IH; -ALBU8.5H8 PO; +AMOX500C2 PO; +ATOR20TA65 PO; +BACL10TA PO; +BEMP1TAB PO; +BUDE10.7 IH; +CHOL500013 PO; -CHOL500043 PO; -EVOL140P3 SQ; -GABA-1181 PO; -IPRA3AMP24 NEB; -ISOS20TA85 PO; +ISOS30TA92 PO; -NITR0.4T50 SL; +NITR0.4T52 SL; -OMEP20CA13 PO; -POTA8CAP20 PO; -PRED-554 PO; +SACU1TAB PO; +SEMA1PEN3 SQ; -TRAZ-252 PO; +TRAZ-257 PO
[2023-10-26 22:13] VITALS: BP 107/67; PULSE 62; RESP 15; TEMP 98.4
[2023-10-27] MEDS: PredniSONE 20 MG TABLET PO ONE (01:01)
[2023-10-27] MEDS: COLCHICINE 0.6 MG TABLET PO ONE (01:01)
[2023-10-27 01:19] LABS: BASOPHILS % (AUTO) 0.3 % (0.0-2.0); EOSINOPHILS % (AUTO) 0.1 % (1.0-6.0); HEMATOCRIT 43.7 % (36-46); HEMOGLOBIN 13.7 g/dL (12.0-16.0); LYMPHOCYTES # (AUTO) 1.1 K/uL (1.0-4.8); LYMPHOCYTES % (AUTO) 7.3 % (22.0-44.0); MEAN CORPUSCULAR HEMOGLOBIN 29.3 pg (26.0-34.0); MEAN CORPUSCULAR HGB CONC 31.4 G/dL (31.0-37.0); MEAN CORPUSCULAR VOLUME 93 fL (80-100); MONOCYTES # (AUTO) 0.5 K/uL (0.1-1.0); MONOCYTES % (AUTO) 3.4 % (2.0-9.0); NEUTROPHILS # (AUTO) 13.1 K/uL (1.8-7.7); PLATELET COUNT (AUTO) 288 K/uL (150-450); RED BLOOD CELL COUNT(AUTO) 4.68 MIL/uL (4.00-5.20); WHITE BLOOD COUNT (AUTO) 14.8 K/uL (4.5-11.0)
[2023-10-27 01:22] LABS: NEUTROPHILS % (AUTO) 88.9 % (40.0-70.0)
[2023-10-27 01:26] LABS: ANION GAP 1 mmol/L (8-16); CARBON DIOXIDE 36 mmol/L (22-29); CHLORIDE 105 mmol/L (98-107); CREATININE 0.99 mg/dL (0.60-1.30); GLOMERULAR FILTR. RATE CALC > 60 mL/min (>60); GLUCOSE,RANDOM 111 mg/dL (70-110); POTASSIUM 4.7 mmol/L (3.5-5.1); SODIUM SERUM 142 mmol/L (136-145); UREA NITROGEN, BLOOD 26 mg/dL (7-18)
[2023-10-27] MEDS ORDERED: PRED-554 PO (02:10)
== END 2023-10-27 03:05 | disposition home or self-care (01) ==
LOC: EMS 21:50
DX: M10.9 Gout, unspecified (principal); J44.9 Chronic obstructive pulmonary disease, unspecified; F17.210 Nicotine dependence, cigarettes, uncomplicated
CPT/HCPCS: 99284; 80048; 85025; 36415; 84145; 73630; J7512